=== PATIENT | female | born 1970 | race Caucasian/White ===

== ENCOUNTER 2019-08-08 00:20 | Day surgery (SDC) | payer OTHER, SELFPAY ==
[2019-07-25 14:08] VITALS: BMI 21.2
[2019-08-08] MEDS: LACTATED RINGERS 1,000 ML 30 ML IV CONT ×2 (12:10→16:30)
--- NOTE | 2019-08-08 12:15 | SUR.PREOP ---
pt informed of delay w/surgeon/acknowledges understanding.
--- NOTE | 2019-08-08 13:05 | P.PNAN_ITS ---
Anes - Initial Pre Proc Eval Procedure: Operation Date: 08/08/19 13:30 Proposed Procedures p Removal Bilateral Breast Implants - Demetris Acuna MD Date/Time: 08/08/19 13:05 Surgeon: Demetris Acuna MD Pre Op Diagnosis: Hx of breast augmentation Patient Data Age: 48 Gender: F Height: 5 ft 3 in Weight: 53.2 kg Allergies Allergy/AdvReac Type Severity Reaction Status Date / Time Penicillins Allergy Unknown Hives Verified 08/08/19 11:47 Home Medications Medication Instructions Recorded Confirmed Type cetirizine [Zyrtec] 10 mg PO DAILY 07/25/19 07/25/19 History fluticasone furoate [Flonase 1 spray INTRANASAL DAILY 07/25/19 07/25/19 History Sensimist] carisoprodol 350 mg tablet 350 mg PO TID PRN #21 tablet 07/28/19 08/08/19 Rx hydrocodone 5 mg-acetaminophen 325 1 tablet PO Q6H PRN #15 tablet 08/03/19 08/08/19 Rx mg tablet Patient hx anesthesia problems: none Family hx anesthesia problems: none [facility] Surgical History Surgical History (Updated 05/30/19 @ 08:13 by Ana Siegel) History of sinus surgery History of tubal ligation Social History Social History (Updated 05/30/19 @ 08:13 by Ana Siegel) Smoking status: Former smoker Alcohol intake: never Gender identity (if verbalized by the patient): Female Anes - Eval Final PreProcedure Day of Procedure 08/08/19 13:05 Patient weight: normal Heart: regular rate and rhythm Lungs: clear to auscultation Airway: Mallampati scale class II Neurological: alert and oriented Last oral intake: >/= 8 hours ASA classification: II Emergent: no Anesthetic plan: proceed Anesthesia type and monitoring: general LMA and standard monitoring Informed Consent: The patient's anesthetic plan and its attendant risks and benefits were discussed with the patient/family/POA. Questions were solicited and answers provided to the satisfaction of the patient/family/POA.
--- NOTE | 2019-08-08 14:07 | WPDHPUPDATE1 ---
History and Physical Update Update Date/Time: 08/08/19 14:07 History and Physical has been reviewed, including an updated exam of the patient. There are NO changes in the patient's condition. Risks, benefits, and alternatives have been discussed and questions answered. Patient agrees to proceed with procedure.
[2019-08-08] MEDS: ceFAZolin 2 GM/D5W 50 ML 2 GM/50 ML BAG IVPB (14:52)
[2019-08-08] MEDS: LIDO 1%/EPINEPHRINE 1:100,000 20 ML VIAL INFILTRATE (15:17)
[2019-08-08] MEDS: KETOROLAC 30 MG/ML VIAL (*BKC) IV PUSH (15:17)
--- NOTE | 2019-08-08 15:39 | PM.PROC ---
Procedure Note - Detailed Date of procedure: 08/08/19 Pre-op diagnosis: Hx of breast augmentation Post-op diagnosis: same Procedure performed: Bilateral breast implant removal Description of procedure: Risks, benefits, alternatives were discussed in the preoperative holding area. I want her to be realistic about the risks involved as well as expectations. She understands this will cause significant cosmetic deformity. This may not alleviate symptoms. All questions answered to her satisfaction and consent obtained. She was taken to the operating room placed supine on operating table. Anesthesia provided by anesthesiology and prepped and draped in standard sterile fashion. Surgical time-out was taken. 1% lidocaine and 0.25% Marcaine with epinephrine was used to provide a field block. A 15 blade used to excise the previous scar which was an inferior areolar scar. Dissection was continued down to the saline implants were identified they were removed. They were intact. I then copiously irrigated with saline solution using a 3 L bag of saline on TUR tubing. A 15 Bill drain was placed and sutured into place with 3-0 nylon. I closed with 2-0 Vicryl followed by 3-0 Monocryl in a running subcuticular 4-0 Monocryl and tissue glue. Dressings were placed. Woken and taken to the PACU without difficulty. All instrument sponge counts were correct at the end of the case. Anesthesia: GLMA Surgeon: Demetris Acuna MD Estimated blood loss (mL): 5 Drains: Yes (Fifteen Bill bilateral) Packing: No Pathology: none sent Complications: No immediate complications Condition: stable Disposition: PACU
[2019-08-08 15:54] VITALS: BP 132/61; PULSE 113; RESP 17; TEMP 36.3; O2SAT 100
[2019-08-08 16:10] VITALS: BP 138/76; PULSE 102; RESP 18; O2SAT 99
[2019-08-08 16:25] VITALS: BP 126/83; PULSE 109; RESP 18; O2SAT 99
[2019-08-08 16:41] VITALS: BP 118/75; PULSE 80; RESP 18; O2SAT 100
[2019-08-08 17:10] VITALS: BP 120/70; PULSE 90; RESP 20; O2SAT 95
[2019-08-08 17:40] VITALS: BP 128/78; PULSE 88; RESP 20; O2SAT 97
== END 2019-08-08 17:55 | disposition home or self-care (01) ==
PROVIDERS: Visit Provider Surgery Plastic and Reconstructive Surgery
PROC: 0HPT0JZ Removal of Synthetic Substitute from Right Breast, Open Approach (ICD-10-PCS; CPT 19328; principal; 2019-08-08 13:30)
DX: Z45.812 Encounter for adjustment or removal of left breast implant (principal); Z45.811 Encounter for adjustment or removal of right breast implant; Z87.891 Personal history of nicotine dependence; R07.82 Intercostal pain; R07.81 Pleurodynia; N64.4 Mastodynia
CPT/HCPCS: 19328; A9270; J0171; J0690; J1885; J2250; J2704; J3010; J7120